=== PATIENT | male | born 1985 | race Caucasian/White ===

== ENCOUNTER 2016-04-23 18:58 | Emergency (ER) | payer SELFPAY ==
[~2016-04-23] VITALS: Ht 177.8 cm; Wt 77.5 kg
[2016-04-23 19:47] VITALS: Ht 177.8 cm; Wt 77.5 kg
[2016-04-23] MEDS ORDERED: OMEG1CAP2 PO (20:43)
[2016-04-23] MEDS ORDERED: ALPR2TAB PO (20:43)
[2016-04-23] MEDS ORDERED: ESCI10TA PO (20:43)
--- NOTE | 2016-04-23 20:48 | ERD ---
ER Documentation Chief Complaint Date/Time DATE: 04/23/16 TIME: 20:46 Chief Complaint Anxiety, Hx of psych and PTSD. feeling suicidal HPI 30-year-old male history of PTSD. The patient states that he has had progressive depressed mood and anxiety. He states that he has been off of his medications. He states his mother 3 days ago. The patient is feeling extremely sad. At triage it was noted that he was suicidal but he denies this. He states that he has 2 kids at home and he does not want to and he wants to take care of them. He is asking for refill of his medication that includes Lexapro Xanax omega-3 and tramadol. He has no hallucinations, no recent drug use, he denies any fevers chills chest pain or shortness of breath. ROS All systems reviewed and are negative except as per history of present illness. Medications Home Meds Active Scripts Colden-3 Acid Ethyl Esters (Lovaza) 1 Gm Capsule, 4 GM PO DAILY, #30 CAP Prov:MISTY MEJIA MD 04/23/16 Alprazolam* (Xanax*) 2 Mg Tablet, 2 MG PO BID, #18 TAB Prov:MISTY MEJIA MD 04/23/16 Escitalopram Oxalate* (Lexapro*) 10 Mg Tablet, 10 MG PO DAILY, #30 TAB Prov:MISTY MEJIA MD 04/23/16 Allergies Allergies: Coded Allergies: Penicillins (Unverified Allergy, Mild, 04/23/16) FmHx Family History: No diabetes Physical Exam Vitals Vital Signs Date Time Temp Pulse Resp B/P Pulse Ox O2 Delivery O2 Flow Rate FiO2 04/23/16 19:47 98.3 98 20 161/56 95 Physical Exam General: Well developed, well nourished, no acute distress Head: Normocephalic, atraumatic. Eyes: Pupils equally reactive, EOM intact ENT: Moist mucous membranes Neck: Supple, no lymphadenopathy Respiratory: Lungs clear bilaterally, no distress Cardiovascular: RRR, no murmurs, rubs, or gallops Abdominal: Soft, non-tender, non-distended, no peritoneal signs : Deferred MSK: No edema, no unilateral swelling, 5/5 strength Neurologic: Alert and oriented, moving all extremities, normal speech, no focal weakness, no cerebellar signs Skin: No rash Psych: Depressed mood, no suicidal thoughts Results 24 hrs Current Medications Medications (Trade) Dose Ordered Sig/Oralia Route PRN Reason Start Time Stop Time Status Last Admin Dose Admin Alprazolam (Xanax) 2 mg ONCE ONCE PO 04/23/16 21:00 04/23/16 21:01 Procedures/MDM MEDICAL DECISION MAKING: The patient's presentation is consistent with underlying psychiatric illness and likely exacerbation of PTSD and likely grief reaction I have a much lower clinical concern for delirium or acute organic pathology such as toxicologic, metabolic, ischemic, intracranial hemorrhage, infectious process. However, we must rule this out prior to relying a diagnosis of underlying psychiatric illness. ER COURSE: The patient is not suicidal. He is grieving. He does have underlying psychiatric illness in the form of PTSD and he has not been taking his medications. He was given Xanax 2 mg here consistent with his medications. The patient will have a refill of his medications. I offered psychiatric evaluation with the patient refused. He states that he has good social resources and he would just like to be discharged with his medications. At triage it was noted that he is suicidal but he adamantly denies this. The patient talks about his children and has reliable social network. The patient is safe for discharge at this time he does not appear to be a danger to himself or others. We discussed follow up with the patient's primary care doctor within 24 to 48 hours as needed. We also discussed return to the emergency room for worsening symptoms or worsening condition. Discharge Medications: Lexapro 10 mg daily, Xanax 2 mg twice daily, omega-3 Departure Diagnosis: Primary Impression: Encounter for medication refill Additional Impression: Grieving Condition: Stable Patient Instructions: Grief and Loss Referrals: COMM[facility]ITY CLINICS YOU HAVE RECEIVED A MEDICAL SCREENING EXAM AND THE RESULTS INDICATE THAT YOU DO NOT HAVE A CONDITION THAT REQUIRES URGENT TREATMENT IN THE EMERGENCY DEPARTMENT. FURTHER EVALUATION AND TREATMENT OF YOUR CONDITION CAN WAIT UNTIL YOU ARE SEEN IN YOUR DOCTORS OFFICE WITHIN THE NEXT 1-2 DAYS. IT IS YOUR RESPONSIBILITY TO MAKE AN APPOINTMENT FOR FOLOW-UP CARE. IF YOU HAVE A PRIMARY DOCTOR --you should call your primary doctor and schedule an appointment IF YOU DO NOT HAVE A PRIMARY DOCTOR YOU CAN CALL OUR PHYSICIAN REFERRAL HOTLINE AT IF YOU CAN NOT AFFORD TO SEE A PHYSICIAN YOU CAN CHOSE FROM THE FOLLOWING [facility] [address] [place] [facility] [id number] [place] [facility] [address] [facility] [address] [facility] [address] [facility]. [address] [facility]. [facility] YOU HAVE RECEIVED A MEDICAL SCREENING EXAM AND THE RESULTS INDICATE THAT YOU DO NOT HAVE A CONDITION THAT REQUIRES URGENT TREATMENT IN THE EMERGENCY DEPARTMENT. FURTHER EVALUATION AND TREATMENT OF YOUR CONDITION CAN WAIT UNTIL YOU ARE SEEN IN YOUR DOCTORS OFFICE WITHIN THE NEXT 1-2 DAYS. IT IS YOUR RESPONSIBILITY TO MAKE AN APPOINTMENT FOR FOLOW-UP CARE. IF YOU HAVE A PRIMARY DOCTOR --you should call your primary doctor and schedule and appointment IF YOU DO NOT HAVE A PRIMARY DOCTOR YOU CAN CALL OUR PHYSICIAN REFERRAL HOTLINE AT . IF YOU CAN NOT AFFORD TO SEE A PHYSICIAN YOU CAN CHOSE FROM THE FOLLOWING [facility] IN[facility]IONS: [facility] [address] [place] [address] [facility] [address] [place] [address] [facility] [address] [place] [address] Additional Instructions: Call your primary care doctor TOMORROW for an appointment during the next 1 WEEK.Tell the litigation secretary that you were referred from this facility.See the doctor sooner or return here if your condition worsens before your appointment time. MISTY MEJIA MD Apr 23, 2016 20:48
[2016-04-23] MEDS ORDERED: ALPRAZOLAM 0.25 MG TAB PO ONE (21:00)
== END 2016-04-23 20:59 | disposition home or self-care (01) ==
LOC: E/R 18:58
DX: F43.21 Adjustment disorder with depressed mood (principal); Z76.0 Encounter for issue of repeat prescription
CPT/HCPCS: 99283